=== PATIENT | male | born 1970 | race Two or more races ===

== ENCOUNTER 2022-10-30 09:45 | Emergency (ER) | payer BC ==
[~2022-10-30] VITALS: Ht 180.3 cm; Wt 90.7 kg
[2022-10-30] MEDS ORDERED: SYNTHROID75 MCG (10:02)
[2022-10-30] MEDS ORDERED: WELLBUTRIN SR200 MG PO (10:02)
== END 2022-10-30 13:32 | disposition home or self-care (01) ==
LOC: ER 09:45
DX: S81.811A Laceration without foreign body, right lower leg, initial encounter (principal); W18.30XA Fall on same level, unspecified, initial encounter; Y93.89 Activity, other specified; Y92.89 Other specified places as the place of occurrence of the external cause; Y99.9 Unspecified external cause status